=== PATIENT | male | born 1950 | race African-American/Black ===

== ENCOUNTER 2020-12-09 10:11 | Outpatient (CLI) | payer MEDICARE, SELFPAY | END 2020-12-09 10:12 | disposition home or self-care (01) | LOC: ANHCOVIDVC 10:11 | PROVIDERS: PCP Family Medicine; Visit Provider Family Medicine | DX: Z23 Encounter for immunization (principal) | CPT/HCPCS: 0001A; 91300 ==

== ENCOUNTER 2020-12-30 10:12 | Outpatient (CLI) | payer MEDICARE, SELFPAY | END 2020-12-30 10:13 | disposition home or self-care (01) | LOC: ANHCOVIDVC 10:12 | PROVIDERS: PCP Family Medicine; Visit Provider Family Medicine | DX: Z23 Encounter for immunization (principal) | CPT/HCPCS: 0002A; 91300 ==

== ENCOUNTER 2022-08-13 00:26 | Day surgery (SDC) | payer MEDICARE, SELFPAY ==
[2022-08-06 10:57] VITALS: BMI 37.6
[2022-08-13 07:41] VITALS: BP 181/85; PULSE 91; RESP 18; TEMP 36.4; O2SAT 99
[2022-08-13] MEDS: LACTATED RINGERS 1,000 ML 150 ML IV CONT (07:44)
[2022-08-13 07:53] LABS: Glucose Point of Care 146 mg/dl (65-105)
--- NOTE | 2022-08-13 08:15 | PM.HPGS ---
History of Present Illness History of Present Illness Consent: Risks, benefits, and alternatives have been discussed and questions answered. Patient agrees to proceed with procedure. Chief complaint: neoplasm screening, hx of colon polyps Narrative: Mauro Phillips is a 72 year old male Presents for screening colonoscopy. Patient has a history of a sessile serrated adenoma in 2017. Patient presents today for follow-up screening colonoscopy. Patient's current weight appetite and bowel movements are normal. He denies abdominal pain. Patient has had no bleeding. He occasionally has fleeting episodes of rectal discomfort. Review of Systems Review of Systems: Review of systems noncontributory. [facility] Past Medical History Medical History Hypogonadism in male Lumbar radicular syndrome Morbid obesity Surgical History Surgical History History of cataract extraction (~07/17/19) right Family History Family History Mother Family history of glaucoma Family history of malignant neoplasm Father Family history of malignant neoplasm Social History Social History (Updated 06/26/22 @ 08:46 by BRIAN Holguin) Smoking status: Former smoker Tobacco type: cigarettes Alcohol intake: current Drinks per week: 6 Substance use: current Substance use type: marijuana Last use: Daily Living arrangements: with family Spiritual care concerns: No Meds Home Medications and Allergies Home Medications Medication Instructions Recorded Confirmed Type aspirin 81 mg tablet,delayed 81 mg PO DAILY 11/23/19 08/13/22 History release (Adult Low Dose Aspirin) metformin 500 mg tablet 1,000 mg PO DAILY #180 tabs 05/09/21 08/13/22 Rx sildenafil 100 mg tablet 100 mg PO DAILY PRN Sexual Activity 12/19/21 08/13/22 History quinapril 10 mg tablet 10 mg PO DAILY #90 tabs 03/03/22 08/13/22 Rx amlodipine 10 mg tablet 10 mg PO DAILY #90 tabs 06/26/22 08/13/22 Rx chlorthalidone 25 mg tablet 25 mg PO DAILY 08/06/22 08/13/22 History multivitamin with minerals-folic 1 tablet PO DAILY 08/06/22 08/13/22 History acid 0.4 mg tablet potassium chloride 20 mEq 20 meq PO DAILY 08/06/22 08/13/22 History tablet,extended release(part/cryst) simvastatin 10 mg tablet 10 mg PO DAILY 08/06/22 08/13/22 History Allergies Allergy/AdvReac Type Severity Reaction Status Date / Time hydrocodone Allergy Unknown jittery Verified 08/13/22 07:39 and sweating Vital Signs Vital Signs - 24 hr 08/13/22 07:41 Temperature 97.6 F Pulse Rate 91 Respiratory Rate 18 Blood Pressure 181/85 H Pulse Oximetry 99 Oxygen Delivery Room Air Exam Narrative: Physical exam reveals patient to be alert. Vital signs stable. HEENT exam is unremarkable. Patient is anicteric. Lungs are clear to auscultation and percussion. Heart is without murmur or extra sounds. Abdomen bowel sounds are present soft nontender with no organomegaly. Digital external rectal exam is normal. Assessment and Plan Assessment and plan (1) History of colon polyps: Code(s): Z86.010 - Personal history of colonic polyps Status: Acute Assessment and Plan: Patient has a history of a sessile serrated adenomatous colon polyp of the rectum removed 2017. Plan is for surveillance colonoscopy today. Further recommendations may be given after endoscopy.
--- NOTE | 2022-08-13 08:41 | WPDANESEPPF ---
Anes - Initial Pre Proc Eval Procedure: Operation Date: 08/13/22 09:00 Proposed Procedures p Screening Colonoscopy - Dewey Gaffney MD Date/Time: 08/13/22 08:41 Surgeon: Dewey Gaffney MD Pre Op Diagnosis: neoplasm screening, hx of colon polyps Patient Data Age: 72 Gender: M Height: 1.7 m Weight: 108.7 kg Last Vital Signs Temp 97.6 F 08/13/22 07:41 Pulse 91 08/13/22 07:41 Resp 18 08/13/22 07:41 BP 181/85 H 08/13/22 07:41 Pulse Ox 99 08/13/22 07:41 O2 Del Method Room Air 08/13/22 07:41 Allergies Allergy/AdvReac Type Severity Reaction Status Date / Time hydrocodone Allergy Unknown jittery Verified 08/13/22 07:39 and sweating Home Medications Medication Instructions Recorded Confirmed Type aspirin 81 mg tablet,delayed 81 mg PO DAILY 11/23/19 08/13/22 History release (Adult Low Dose Aspirin) metformin 500 mg tablet 1,000 mg PO DAILY #180 tabs 05/09/21 08/13/22 Rx sildenafil 100 mg tablet 100 mg PO DAILY PRN Sexual Activity 12/19/21 08/13/22 History quinapril 10 mg tablet 10 mg PO DAILY #90 tabs 03/03/22 08/13/22 Rx amlodipine 10 mg tablet 10 mg PO DAILY #90 tabs 06/26/22 08/13/22 Rx chlorthalidone 25 mg tablet 25 mg PO DAILY 08/06/22 08/13/22 History multivitamin with minerals-folic 1 tablet PO DAILY 08/06/22 08/13/22 History acid 0.4 mg tablet potassium chloride 20 mEq 20 meq PO DAILY 08/06/22 08/13/22 History tablet,extended release(part/cryst) simvastatin 10 mg tablet 10 mg PO DAILY 08/06/22 08/13/22 History Laboratory Tests 08/13/22 07:45 POC Capillary Glucose 146 mg/dl H mg/dl (65-105) Patient hx anesthesia problems: none Family hx anesthesia problems: none Results Review: All pre-operative results and documents have been reviewed as part of the pre-operative evaluation. [facility] Past Medical History Medical History Hypogonadism in male Lumbar radicular syndrome Morbid obesity Surgical History Surgical History History of cataract extraction (~07/17/19) right Family History Family History Mother Family history of glaucoma Family history of malignant neoplasm Father Family history of malignant neoplasm Social History Social History (Updated 06/26/22 @ 08:46 by BRIAN Holguin) Smoking status: Former smoker Tobacco type: cigarettes Alcohol intake: current Drinks per week: 6 Substance use: current Substance use type: marijuana Last use: Daily Living arrangements: with family Spiritual care concerns: No Anes - Eval Final PreProcedure Day of Procedure 08/13/22 08:41 Patient weight: obese Heart: regular rate and rhythm Lungs: clear to auscultation Airway: Mallampati scale class II Neurological: alert and oriented Last oral intake: >/= 8 hours ASA classification: III Emergent: no Anesthetic plan: proceed Anesthesia type and monitoring: general GIVS and standard monitoring Results Review: All pre-operative results and documents have been reviewed as part of the pre-operative evaluation. Informed Consent: The patient's anesthetic plan and its attendant risks and benefits were discussed with the patient/family/POA. Questions were solicited and answers provided to the satisfaction of the patient/family/POA.
[2022-08-13 09:08] VITALS: BP 152/89; PULSE 79; RESP 30; O2SAT 95
[2022-08-13 09:18] VITALS: BP 144/92; PULSE 86; RESP 20; O2SAT 99
[2022-08-13 09:28] VITALS: BP 150/83; PULSE 73; RESP 20; O2SAT 99
== END 2022-08-13 09:47 | disposition home or self-care (01) ==
PROVIDERS: PCP Family Medicine; Visit Provider Internal Medicine Gastroenterology
PROC: 0DJD8ZZ Inspection of Lower Intestinal Tract, Via Natural or Artificial Opening Endoscopic (ICD-10-PCS; CPT 45378; principal; 2022-08-13 09:00)
DX: Z12.11 Encounter for screening for malignant neoplasm of colon (principal); D17.5 Benign lipomatous neoplasm of intra-abdominal organs; K64.8 Other hemorrhoids; Z79.84 Long term (current) use of oral hypoglycemic drugs; Z79.82 Long term (current) use of aspirin; E66.9 Obesity, unspecified; Z68.37 Body mass index [BMI] 37.0-37.9, adult; Z87.891 Personal history of nicotine dependence; F12.90 Cannabis use, unspecified, uncomplicated
CPT/HCPCS: 45385; 82948; 88305; J2704; J7120